=== PATIENT | male | born 1980 | race Caucasian/White ===

== ENCOUNTER 2016-09-26 02:54 | Emergency (ER) | payer OTHER ==
[2016-09-26] MEDS ORDERED: SODIUM CHLORIDE 1,000 ML IV STA (03:40)
[2016-09-26 03:45] VITALS: BP 133/70; PULSE 90; TEMP 98.8; BMI 27.2
--- NOTE | 2016-09-26 03:45 | PDOC ---
History of Present Illness - General Chief Complaint: Shortness of Breath Stated Complaint: COLD SYMPTOMS, TROUBLE BREATHING Time Seen by Provider: 09/26/16 03:15 History Source: Patient Exam Limitations: No Limitations - History of Present Illness Initial Comments: 09/26/16 03:40 36yo Male patient presents to ED with c/o body aches, weakness, nausea x 3 days. diarrhea x 1 on day 1. Patient states OTC Motrin use daily. He reports symptoms worsened to SOB, back pain, wheezing. Patient denies CP, Abd pain, fever, cough, congestion, rash or any other complaints at this time. Timing/Duration: reports: week Severity: reports: moderate Possible Cause: Yes: illness exposure Modifying Factors: improves with: albuterol inhaler Associated Symptoms: reports: shortness of breath, wheezing Past History - Travel Traveled outside of the country in the last 30 days: No Close contact w/someone who was outside of country & ill: No - Past Medical History Allergies/Adverse Reactions: Allergies Allergy/AdvReac Type Severity Reaction Status Date / Time No Known Allergies Allergy Verified 09/26/16 03:33 Home Medications: Ambulatory Orders Albuterol Sulfate Inhaler - [Ventolin Hfa Inhaler -] 1 - 2 inh PO Q1H 09/26/16 - Psycho/Social/Smoking Cessation Hx Suicidal Ideation: No Smoking History: Never smoked Respiratory Specific PMHX - Complaint Specific PMHX Angina: No Bronchitis: No Pneumonia: No Pulmonary Embolus: No TB (Tuberculosis): No Review of Systems - Review of Systems Able to Perform ROS?: Yes Is the patient limited Taiwanese proficient: No Constitutional: No: Chills, Fever HEENTM: No: Nose Congestion, Throat Pain Respiratory: Yes: Shortness of Breath, Wheezing. No: Cough, Stridor Cardiac (ROS): No: Chest Pain, Lightheadedness, Palpitations, Syncope, Chest Tightness ABD/GI: No: Constipated, Diarrhea, Nausea, Poor Appetite, Poor Fluid Intake, Rectal Bleeding, Vomiting, Tarry Stools : No: Burning, Dysuria, Discharge, Flank Pain, Hematuria, Pain, Urgency Musculoskeletal: Yes: Back Pain. No: Joint Pain Integumentary: No: Bruising, Rash Neurological: No: Headache, Numbness, Paresthesia, Seizure, Tremors, Weakness, Ataxia, Dizziness All Other Systems: Reviewed and Negative *Physical Exam - Vital Signs Last Vital Signs Temp Pulse Resp BP Pulse Ox 98.8 F 90 20 133/70 99 09/26/16 03:33 09/26/16 03:33 09/26/16 03:33 09/26/16 03:33 09/26/16 03:33 - Physical Exam General Appearance: Yes: Nourished, Appropriately Dressed. No: Apparent Distress, Mild Distress, Moderate Distress, Severe Distress HEENT: positive: EOMI, LOTUS, Normal ENT Inspection, Normal Voice, Symmetrical, TMs Normal, Pharynx Normal. negative: Pharyngeal Erythema, Tonsillar Exudate, Tonsillar Erythema, Nasal Congestion, Rhinorrhea, Sinus Tenderness, TM Bulging, TM Dull, TM Erythema Neck: positive: Trachea midline, Supple. negative: Stridor, Lymphadenopathy (R) , Lymphadenopathy (L) Respiratory/Chest: positive: Wheezing. negative: Lungs Clear, Normal Breath Sounds, Respiratory Distress, Accessory Muscle Use, Labored Respiration, Rapid RR, Rhonchi, Stridor Cardiovascular: positive: Regular Rhythm, Regular Rate. negative: Edema, JVD, Murmur Gastrointestinal/Abdominal: positive: Normal Bowel Sounds, Soft. negative: Distended, Guarding, Rebound, Tenderness Musculoskeletal: positive: Normal Inspection. negative: CVA Tenderness Extremity: positive: Normal Capillary Refill, Normal Inspection, Normal Range of Motion. negative: Pedal Edema, Swelling Integumentary: positive: Normal Color, Dry, Warm. negative: Pale, Hives, Petechiae, Rash Neurologic: positive: wax molder II-XII NML intact, Fully Oriented, Normal Response, Motor Strength 5/5 ED Treatment Course - LABORATORY CBC & Chemistry Diagram: 09/26/16 04:00 09/26/16 04:00 - RADIOLOGY Radiology Studies Ordered: Category Date Time Status CHEST PA & LAT [RAD] Stat Radiology 09/26/16 03:34 Ordered *DC/Admit/Observation/Transfer Diagnosis at time of Disposition: Viral infection - Discharge Dispostion Disposition: HOME Condition at time of disposition: Improved Admit: No - Patient Instructions Printed Discharge Instructions: DI for Viral Syndrome Additional Instructions: FOLLOW UP WITH YOUR PRIMARY CARE PROVIDER. CALL TO SCHEDULE APPOINTMENT. TAKE MEDICATIONS PRESCRIBED. MOTRIN OR TYLENOL FOR PAIN/FEVER. ALTERNATE BETWEEN THE TWO. DRINK LOTS OF WATER. GET REST. RETURN IF ANY CONCERNS FOR FURTHER EVALUATION. Print Language: PAKIST[place] - Post Discharge Activity Work/School Note: Back to Work
[2016-09-26] MEDS: ALBUTEROL SO4 2.5/IPRATROPIUM 0.5 INH SOL 3 ML VIAL.NEB. NEB SCH (04:10)
[2016-09-26 04:29] LABS: BASOPHIL 0.4 % (0-2.0); EOSINOPHIL 4.9 % (0-4.5); MCH 28.7 pg (25.7-33.7); MCHC 33.9 g/dl (32.0-35.9); MEAN CELL VOLUME 84.5 fl (80-96); MEAN PLT VOLUME 9.1 fl (7.5-11.1); NEUTROPHILS 58.9 % (42.8-82.8); PLATELET COUNT 165 K/MM3 (134-434); WHITE BLOOD COUNT 6.4 K/mm3 (4.0-10.0)
[2016-09-26 04:44] LABS: ALBUMIN 3.7 g/dl (3.4-5.0); ALK PHOS 52 U/L (45-117); ANION GAP 12 (8-16); BILIRUBIN,TOTAL 0.3 mg/dL (0.2-1.0); CALCIUM 7.8 mg/dL (8.5-10.1); CO2 27 mmol/L (21-32); CREATININE 0.9 mg/dL (0.7-1.3); GLUCOSE,RANDOM 117 mg/dL (74-106); SGOT/AST 16 U/L (15-37); SGPT/ALT 19 U/L (12-78); TOT PROT 6.6 g/dl (6.4-8.2)
[2016-09-26] MEDS ORDERED: POTASSIUM CHLORIDE TABS 20 MEQ TABLET.ER (FP) PO ONE ×2 (05:19→05:28)
== END 2016-09-26 05:48 | disposition home or self-care (01) ==
LOC: JER 02:54
PROC: 3E0F7GC Introduction of Other Therapeutic Substance into Respiratory Tract, Via Natural or Artificial Opening (ICD-10-PCS; principal; 2016-09-26)
PROC: 3E0337Z Introduction of Electrolytic and Water Balance Substance into Peripheral Vein, Percutaneous Approach (ICD-10-PCS; 2016-09-26)
DX: B34.9 Viral infection, unspecified (principal)
CPT/HCPCS: 36415; 71020-TC; 80053; 85025; 87804; 94640; 96360; 99282-25

== ENCOUNTER 2021-03-06 19:34 | Emergency (ER) | payer SELFPAY ==
[2021-03-06 20:06] VITALS: BP 136/92; PULSE 84; TEMP 97.9; BMI 31.5
[2021-03-06] MEDS ORDERED: ACETAMINOPHEN 325 MG TABLET (FP) PO ONE (20:30)
[2021-03-06] MEDS ORDERED: ACETAMINOPHEN 325 MG TABLET (FP) ONE (20:35)
[2021-03-06 20:58] LABS: BASO % 0.9 % (0-2.0); EOS % 5.1 % (0-4.5); HEMATOCRIT 44.5 % (35.4-49); HEMOGLOBIN 15.2 GM/dL (11.7-16.9); LYMPH % 20.5 % (8-40); MCH 28.9 pg (25.7-33.7); MCHC 34.2 g/dl (32.0-35.9); MEAN CELL VOLUME 84.4 fl (80-96); MEAN PLT VOLUME 8.3 fl (7.5-11.1); MONO % 7.5 % (3.8-10.2); PLATELET COUNT 220 10^3/uL (134-434); RBC 5.27 M/mm3 (4.00-5.60); RDW 13.3 % (11.9-15.9); WHITE BLOOD COUNT 11.6 K/mm3 (4.0-10.0)
[2021-03-06 21:25] LABS: CHLORIDE 106 mmol/L (98-107); SODIUM 140 mmol/L (136-145)
[2021-03-06 21:27] LABS: ALBUMIN 3.9 g/dl (3.4-5.0); ANION GAP 8 MMOL/L (8-16); BLOOD UREA NITROGEN 20.9 mg/dL (7-18); CALCIUM 8.5 mg/dL (8.5-10.1); CO2 25 mmol/L (21-32); GLUCOSE,RANDOM 100 mg/dL (74-106)
[2021-03-06 21:30] LABS: CREATININE 0.9 mg/dL (0.55-1.3)
[2021-03-06 21:31] LABS: SGOT/AST 19 U/L (15-37); SGPT/ALT 35 U/L (13-61)
[2021-03-06 21:32] LABS: BILIRUBIN,TOTAL 0.3 mg/dL (0.2-1); TOT PROT 7.4 g/dl (6.4-8.2)
[2021-03-06 21:33] LABS: ALK PHOS 69 U/L (45-117)
== END 2021-03-06 22:06 | disposition home or self-care (01) ==
LOC: JER 19:34
DX: R07.89 Other chest pain (principal)
CPT/HCPCS: 36415; 71046-TC-FY; 80053; 82550; 84484; 85025; 93005; 93010; 99284-25